=== PATIENT | male | born 1985 | race Caucasian/White ===

== ENCOUNTER → 2020-10-16 | Outpatient (REF) | payer BC ==
[2020-10-16 18:45] LABS: APPEARANCE, URINE CLEAR (CLEAR); BACTERIA, URINE AUTO NEGATIVE (NEGATIVE); BILIRUBIN, URINE AUTO NEGATIVE (NEGATIVE); BLOOD, URINE BLOOD NEGATIVE (NEGATIVE); COLOR, URINE YELLOW (YELLOW); GLUCOSE, URINE (UA) AUTO NEGATIVE (NEGATIVE); KETONE, URINE AUTO NEGATIVE (NEGATIVE); LEUKOCYTE ESTERASE, URINE AUTO NEGATIVE (NEGATIVE); MUCUS, URINE SMALL (NEGATIVE); NITRITE, URINE AUTO NEGATIVE (NEGATIVE); PROTEIN, URINE AUTO NEGATIVE (NEGATIVE); RBC, URINE AUTO 2 /HPF (0-3); SPECIFIC GRAVITY URINE AUTO 1.012 (1.002-1.035); SQUAMOUS EPITHELIAL CELL UR AU 0 /HPF (0-6); UROBILINOGEN, URINE AUTO 0.2 mg/dL (0.0-2.0); WBC, URINE AUTO 0 /HPF (0-3)
== END ==
LOC: M SMT 17:29
PROVIDERS: ATTEND Nurse Practitioner Women's Health
DX: R31.9 Hematuria, unspecified (principal)

== ENCOUNTER 2023-04-25 08:53 | Inpatient (IN) | payer BC ==
[~2023-04-25] VITALS: Ht 172.7 cm; Wt 56.0 kg
[2023-04-25] MEDS ORDERED: NS 1,000 ML IV ONE ×2 (12:05→13:15)
[2023-04-25] MEDS ORDERED: PANTOPRAZOLE 40MG VIAL IV ONE ×2 (12:05→16:00)
[2023-04-25] MEDS ORDERED: diazePAM 10MG/2ML SYRINGE IV ONE ×2 (12:05→14:20)
[2023-04-25] MEDS ORDERED: ONDANSETRON 4MG 2ML VIAL IV ONE (12:05)
[2023-04-25 12:18] LABS: BASO # 0.1 10^3/uL (0.0-0.2); BASO % 0.7 % (0.0-1.0); EOS % 0.1 % (0.0-3.0); HEMATOCRIT 49.2 % (42.0-52.0); HEMOGLOBIN 17.7 g/dl (13.5-17.5); LYMPH # 0.9 10^3/uL (1.5-5.0); LYMPH % 7.5 % (24.0-44.0); MEAN CORPUSCULAR HEMOGLOBIN 34.8 pg (27.0-33.0); MEAN CORPUSCULAR VOLUME 96.9 fl (80.0-96.0); MONO # 0.7 10^3/uL (0.0-0.8); MONO % 6.3 % (2.0-8.0); NEUTROPHILS # 9.9 10^3/uL (1.5-8.5); PLATELET COUNT, AUTOMATED 117 10^3/uL (150-450); RED BLOOD COUNT 5.08 10^6/uL (4.30-6.10); WHITE BLOOD COUNT 11.7 10^3/uL (4.0-10.0)
[2023-04-25 12:22] LABS: LIPASE 38 U/L (12-53)
[2023-04-25 12:24] LABS: ALKALINE PHOSPHATASE 111 U/L (46-116); ALT/SGPT 122 U/L (7.0-40); AST/SGOT 184 U/L (<34); BILIRUBIN,DIRECT 0.6 MG/DL (<0.4); BILIRUBIN,TOTAL 1.6 MG/DL (0.3-1.2); TOTAL PROTEIN 7.1 G/DL (5.7-8.2)
[2023-04-25 12:29] LABS: INR 0.96
[2023-04-25 12:30] LABS: PARTIAL THROMBOPLASTIN TIME 21.6 SECONDS (24.8-34.2)
[2023-04-25] MEDS ORDERED: ISOVUE-370 76% 100ML VIAL As Ordered ONE (12:37)
[2023-04-25] MEDS ORDERED: ONDANSETRON 4MG 2ML VIAL IV PRN (15:20)
[2023-04-25] MEDS: LR 1,000 ML IV SCH (15:42)
[2023-04-25 15:52] LABS: C REACTIVE PROTEIN QUANTITATIV < 0.40 MG/DL (<1.0)
[2023-04-25 15:53] LABS: BLOOD UREA NITROGEN 10 MG/DL (9-23); CALCIUM LEVEL 9.2 MG/DL (8.5-10.1); CARBON DIOXIDE LEVEL 21 MMOL/L (20-31); CHLORIDE LEVEL 102 MMOL/L (98-107); GLOMERULAR FILTRATION RATE > 60.0 (>60); GLUCOSE, FASTING 104 MG/DL (60-100); POTASSIUM SERUM 3.5 MMOL/L (3.5-5.1); SODIUM LEVEL 142 MMOL/L (136-145)
[2023-04-25] MEDS ORDERED: MED REC IN PROGRESS XX SCH (15:55)
[2023-04-25] MEDS ORDERED: THIAMINE 200MG 2ML VIAL IM ONE (16:00)
[2023-04-25 16:07] LABS: PROCALCITONIN <0.04 ng/ml
[2023-04-25 16:08] LABS: ERYTHROCYTE SEDIMENTATION RATE 2 mm/hr (0-15)
[2023-04-25 16:25] LABS: BASO # 0.1 10^3/uL (0.0-0.2); BASO % 0.5 % (0.0-1.0); HEMATOCRIT 45.9 % (42.0-52.0); HEMOGLOBIN 16.3 g/dl (13.5-17.5); LYMPH # 0.5 10^3/uL (1.5-5.0); LYMPH % 4.7 % (24.0-44.0); MEAN CORPUSCULAR HGB CONC 35.5 g/dl (32.0-36.5); MEAN CORPUSCULAR VOLUME 98.5 fl (80.0-96.0); MONO # 0.9 10^3/uL (0.0-0.8); MONO % 8.2 % (2.0-8.0); NEUTROPHILS # 9.8 10^3/uL (1.5-8.5); NEUTROPHILS % 86.1 % (36.0-66.0); RED BLOOD COUNT 4.66 10^6/uL (4.30-6.10); WHITE BLOOD COUNT 11.4 10^3/uL (4.0-10.0)
[2023-04-25 16:27] LABS: MAGNESIUM LEVEL 1.5 MG/DL (1.8-2.4)
[2023-04-25 16:28] LABS: HIV 1&2 SCREEN NEGATIVE (NEGATIVE)
[2023-04-25 16:58] LABS: PLATELET COUNT, AUTOMATED 98 10^3/uL (150-450)
[2023-04-25 17:15] LABS: HEPATITIS C VIRUS ABY INDEX 0.07 INDEX (<0.8)
[2023-04-25 17:16] LABS: HEPATITIS B CORE ANTIBODY IGM NEGATIVE (NEGATIVE)
[2023-04-25] MEDS: LORazepam 2 MG TAB PO PRN ×2 (17:43→21:29)
[2023-04-25] MEDS: PIPERACILLIN/TAZOBACTAM SOD 3.375 GM in D5W MINI-BAG PLUS 50 ML IV SCH ×2 (18:34→23:45)
[2023-04-25] MEDS ORDERED: QUET50TA4 PO (19:16)
[2023-04-25] MEDS ORDERED: ATEN50TA2 PO (19:16)
[2023-04-25] MEDS ORDERED: BUSP15TA47 PO (19:16)
[2023-04-25] MEDS ORDERED: DULO1CAP6 PO (19:16)
[2023-04-25] MEDS ORDERED: HOME MED LIST COMPLETE! XX SCH (19:20)
[2023-04-25] MEDS: KCL 10MEQ/100ML SWI (KRUN) 10 MEQ in IV 1 EA IV SCH ×4 (19:20→23:09)
[2023-04-25 20:42] LABS: ALBUMIN 3.4 G/DL (3.2-5.2); ALKALINE PHOSPHATASE 93 U/L (46-116); ALT/SGPT 94 U/L (7.0-40); AST/SGOT 124 U/L (<34); BILIRUBIN,TOTAL 2.2 MG/DL (0.3-1.2); BLOOD UREA NITROGEN 8 MG/DL (9-23); CALCIUM LEVEL 8.1 MG/DL (8.5-10.1); CARBON DIOXIDE LEVEL 29 MMOL/L (20-31); CHLORIDE LEVEL 103 MMOL/L (98-107); CREATININE FOR GFR 0.88 MG/DL (0.70-1.30); GLOMERULAR FILTRATION RATE > 60.0 (>60); GLUCOSE, FASTING 119 MG/DL (60-100); POTASSIUM SERUM 4.2 MMOL/L (3.5-5.1); SODIUM LEVEL 141 MMOL/L (136-145)
[2023-04-25 21:16] VITALS: BP 190/102; TEMP 97.6; O2SAT 100
[2023-04-25] MEDS: DULoxetine 30MG CAPSULE (CYMBALTA) PO SCH (21:29)
[2023-04-25] MEDS: QUEtiapine FUMARATE 50MG TAB PO SCH (21:29)
[2023-04-25] MEDS: THIAMINE 100 MG TAB PO SCH (21:30)
[2023-04-25] MEDS: NYSTATIN 500,000U/5ML SUSP UDC PO SCH (21:30)
[2023-04-25] MEDS: atenoloL 50 MG TAB PO SCH (21:30)
[2023-04-25 22:29] VITALS: BP 160/93
[2023-04-25 23:17] VITALS: BP 154/100; TEMP 98.5; O2SAT 100
[2023-04-26] MEDS: PANTOPRAZOLE 40MG VIAL IV SCH ×2 (03:50→16:21)
[2023-04-26 04:25] VITALS: BP 165/102; TEMP 97.6; O2SAT 98
[2023-04-26] MEDS: LR 1,000 ML IV SCH ×2 (04:40→08:59)
[2023-04-26] MEDS: PIPERACILLIN/TAZOBACTAM SOD 3.375 GM in D5W MINI-BAG PLUS 50 ML IV SCH ×4 (05:10→23:20)
[2023-04-26 06:50] LABS: PROCALCITONIN 0.13 ng/ml
[2023-04-26 06:51] LABS: HEMATOCRIT 40.2 % (42.0-52.0); HEMOGLOBIN 13.9 g/dl (13.5-17.5); MEAN CORPUSCULAR HEMOGLOBIN 34.2 pg (27.0-33.0); MEAN CORPUSCULAR HGB CONC 34.6 g/dl (32.0-36.5); RED BLOOD COUNT 4.06 10^6/uL (4.30-6.10); WHITE BLOOD COUNT 6.4 10^3/uL (4.0-10.0)
[2023-04-26 06:52] LABS: ALKALINE PHOSPHATASE 83 U/L (46-116); ALT/SGPT 86 U/L (7.0-40); AST/SGOT 132 U/L (<34); BILIRUBIN,TOTAL 2.9 MG/DL (0.3-1.2); BLOOD UREA NITROGEN 6 MG/DL (9-23); CALCIUM LEVEL 8.1 MG/DL (8.5-10.1); CARBON DIOXIDE LEVEL 28 MMOL/L (20-31); CHLORIDE LEVEL 105 MMOL/L (98-107); CREATININE FOR GFR 1.02 MG/DL (0.70-1.30); GLOMERULAR FILTRATION RATE > 60.0 (>60); GLUCOSE, FASTING 86 MG/DL (60-100); MAGNESIUM LEVEL 1.2 MG/DL (1.8-2.4); POTASSIUM SERUM 3.7 MMOL/L (3.5-5.1); SODIUM LEVEL 142 MMOL/L (136-145); TOTAL PROTEIN 5.4 G/DL (5.7-8.2)
[2023-04-26 07:31] LABS: PLATELET COUNT, AUTOMATED 61 10^3/uL (150-450)
[2023-04-26] MEDS: MAG SULF 1GM/100ML (MAG RUN) 1 GM in IV 1 EA IV SCH ×4 (08:34→11:42)
[2023-04-26] MEDS: MULTIVITAMINS/MINERALS THERAP 1 TAB PO SCH (08:34)
[2023-04-26] MEDS: THIAMINE 100 MG TAB PO SCH ×2 (08:34→20:07)
[2023-04-26] MEDS: NYSTATIN 500,000U/5ML SUSP UDC PO SCH ×4 (08:34→20:06)
[2023-04-26] MEDS: FOLIC ACID 1MG TAB PO SCH (08:34)
[2023-04-26 08:59] VITALS: BP 150/102; TEMP 98; O2SAT 97
[2023-04-26 11:49] LABS: MONO REFLEX EBV COMP NEGATIVE (NEGATIVE)
[2023-04-26 12:00] VITALS: BP 172/110; TEMP 98.4; O2SAT 96
[2023-04-26] MEDS ORDERED: DOCUSATE SODIUM 100MG CAPSULE PO SCH (12:15)
[2023-04-26] MEDS: SUCRALFATE 1 GM TAB PO SCH ×3 (12:19→20:07)
[2023-04-26 12:24] LABS: HEPATITIS B CORE ANTIBODY IGM NEGATIVE (NEGATIVE); HEPATITIS C VIRUS ABY INDEX 0.07 INDEX (<0.8)
[2023-04-26] MEDS: BISACODYL 5MG TAB PO SCH ×2 (13:24→20:07)
[2023-04-26] MEDS: DOCUSATE SODIUM 100MG CAPSULE PO SCH ×3 (13:25→20:07)
[2023-04-26 13:51] LABS: APPEARANCE, URINE CLEAR (CLEAR); BACTERIA, URINE AUTO NEGATIVE (NEGATIVE); BILIRUBIN, URINE AUTO NEGATIVE (NEGATIVE); BLOOD, URINE BLOOD NEGATIVE (NEGATIVE); COLOR, URINE STRAW (YELLOW); GLUCOSE, URINE (UA) AUTO NEGATIVE (NEGATIVE); KETONE, URINE AUTO NEGATIVE (NEGATIVE); LEUKOCYTE ESTERASE, URINE AUTO NEGATIVE (NEGATIVE); MUCUS, URINE SMALL (NEGATIVE); NITRITE, URINE AUTO NEGATIVE (NEGATIVE); PROTEIN, URINE AUTO NEGATIVE (NEGATIVE); RBC, URINE AUTO 1 /HPF (0-3); SPECIFIC GRAVITY URINE AUTO 1.005 (1.002-1.035); SQUAMOUS EPITHELIAL CELL UR AU 0 /HPF (0-6); WBC, URINE AUTO 0 /HPF (0-3)
[2023-04-26] MEDS ORDERED: MULTIVITAMIN -ADULT INJECTION 10 ML, THIAMINE INJection 100 MG, FOLIC ACID 1 MG in NS 1... IV ONE (14:00)
[2023-04-26] MEDS ORDERED: amLODIPine 5 MG TAB PO ONE (14:50)
[2023-04-26 16:00] VITALS: BP 150/100; TEMP 97.9; O2SAT 99
[2023-04-26] MEDS: busPIRone 5 MG TAB PO PRN (16:20)
[2023-04-26 20:04] VITALS: BP 150/104; TEMP 98; O2SAT 98
[2023-04-26] MEDS: QUEtiapine FUMARATE 50MG TAB PO SCH (20:06)
[2023-04-26] MEDS: atenoloL 50 MG TAB PO SCH (20:06)
[2023-04-26] MEDS: DULoxetine 30MG CAPSULE (CYMBALTA) PO SCH (20:07)
[2023-04-26 23:45] VITALS: BP 160/93; TEMP 98.2; O2SAT 99
[2023-04-27] VITALS (8 sets, daily range): BP systolic 142–190; BP diastolic 70–110; TEMP 96.8–99; O2SAT 99–100
[2023-04-27] MEDS: PANTOPRAZOLE 40MG VIAL IV SCH ×2 (03:27→15:57)
[2023-04-27 05:14] LABS: BASO % 0.4 % (0.0-1.0); EOS # 0.1 10^3/uL (0.0-0.5); EOS % 1.8 % (0.0-3.0); HEMATOCRIT 40.5 % (42.0-52.0); HEMOGLOBIN 14.4 g/dl (13.5-17.5); LYMPH % 21.1 % (24.0-44.0); MEAN CORPUSCULAR HEMOGLOBIN 34.7 pg (27.0-33.0); MEAN CORPUSCULAR HGB CONC 35.6 g/dl (32.0-36.5); MEAN CORPUSCULAR VOLUME 97.6 fl (80.0-96.0); MONO # 0.5 10^3/uL (0.0-0.8); MONO % 9.3 % (2.0-8.0); NEUTROPHILS # 3.3 10^3/uL (1.5-8.5); RED BLOOD COUNT 4.15 10^6/uL (4.30-6.10); WHITE BLOOD COUNT 4.9 10^3/uL (4.0-10.0)
[2023-04-27 05:19] LABS: PLATELET COUNT, AUTOMATED 55 10^3/uL (150-450)
[2023-04-27] MEDS: PIPERACILLIN/TAZOBACTAM SOD 3.375 GM in D5W MINI-BAG PLUS 50 ML IV SCH ×2 (05:23→11:56)
[2023-04-27 05:33] LABS: ALKALINE PHOSPHATASE 81 U/L (46-116); ALT/SGPT 79 U/L (7.0-40); AST/SGOT 98 U/L (<34); BILIRUBIN,TOTAL 2.4 MG/DL (0.3-1.2); BLOOD UREA NITROGEN < 5 MG/DL (9-23); CARBON DIOXIDE LEVEL 25 MMOL/L (20-31); CHLORIDE LEVEL 105 MMOL/L (98-107); CREATININE FOR GFR 0.93 MG/DL (0.70-1.30); GLOMERULAR FILTRATION RATE > 60.0 (>60); GLUCOSE, FASTING 85 MG/DL (60-100); MAGNESIUM LEVEL 1.8 MG/DL (1.8-2.4); POTASSIUM SERUM 3.5 MMOL/L (3.5-5.1); SODIUM LEVEL 140 MMOL/L (136-145); TOTAL PROTEIN 5.6 G/DL (5.7-8.2)
[2023-04-27] MEDS: BISACODYL 5MG TAB PO SCH ×2 (08:34→21:55)
[2023-04-27] MEDS: MULTIVITAMINS/MINERALS THERAP 1 TAB PO SCH (08:34)
[2023-04-27] MEDS: DOCUSATE SODIUM 100MG CAPSULE PO SCH ×3 (08:34→21:54)
[2023-04-27] MEDS: FOLIC ACID 1MG TAB PO SCH (08:35)
[2023-04-27] MEDS: busPIRone 5 MG TAB PO PRN (08:35)
[2023-04-27] MEDS: NYSTATIN 500,000U/5ML SUSP UDC PO SCH ×4 (08:35→21:56)
[2023-04-27] MEDS: THIAMINE 100 MG TAB PO SCH ×2 (08:35→21:55)
[2023-04-27] MEDS: SUCRALFATE 1 GM TAB PO SCH ×4 (08:35→21:55)
[2023-04-27] MEDS ORDERED: amLODIPine 5 MG TAB PO SCH (09:00)
[2023-04-27 14:14] LABS: EBV VIRAL CAPSID AG IgG >600.0 U/mL (0.0-17.9); EBV VIRAL CAPSID AG IgM <36.0 U/mL (0.0-35.9)
[2023-04-27] MEDS ORDERED: amLODIPine 5 MG TAB PO ONE (15:40)
[2023-04-27] MEDS ORDERED: GOLYTELY SOLN 4000 ML BTL PO ONE (16:00)
[2023-04-27] MEDS: DULoxetine 30MG CAPSULE (CYMBALTA) PO SCH (21:54)
[2023-04-27] MEDS: QUEtiapine FUMARATE 50MG TAB PO SCH (21:55)
[2023-04-27] MEDS: AUGMENTIN 875 MG TAB PO SCH (21:55)
[2023-04-27] MEDS: atenoloL 50 MG TAB PO SCH (21:55)
[2023-04-27] MEDS ORDERED: ONDANSETRON 4MG 2ML VIAL IV PRN (23:20)
[2023-04-28 02:25] VITALS: BP 158/98
[2023-04-28] MEDS: PANTOPRAZOLE 40MG VIAL IV SCH ×2 (04:12→16:19)
[2023-04-28 04:40] VITALS: BP 144/64; TEMP 98.1; O2SAT 100
[2023-04-28 05:59] LABS: BASO # 0.1 10^3/uL (0.0-0.2); BASO % 0.9 % (0.0-1.0); EOS # 0.2 10^3/uL (0.0-0.5); EOS % 3.4 % (0.0-3.0); HEMATOCRIT 44.7 % (42.0-52.0); LYMPH # 1.5 10^3/uL (1.5-5.0); LYMPH % 27.6 % (24.0-44.0); MEAN CORPUSCULAR HEMOGLOBIN 34.9 pg (27.0-33.0); MEAN CORPUSCULAR HGB CONC 35.8 g/dl (32.0-36.5); MEAN CORPUSCULAR VOLUME 97.6 fl (80.0-96.0); MONO # 0.6 10^3/uL (0.0-0.8); MONO % 11.8 % (2.0-8.0); NEUTROPHILS % 55.9 % (36.0-66.0); RED BLOOD COUNT 4.58 10^6/uL (4.30-6.10); WHITE BLOOD COUNT 5.4 10^3/uL (4.0-10.0)
[2023-04-28 06:02] LABS: PLATELET COUNT, AUTOMATED 63 10^3/uL (150-450)
[2023-04-28 06:37] LABS: ALBUMIN 3.2 G/DL (3.2-5.2); ALKALINE PHOSPHATASE 83 U/L (46-116); ALT/SGPT 112 U/L (7.0-40); AST/SGOT 155 U/L (<34); BILIRUBIN,TOTAL 1.4 MG/DL (0.3-1.2); BLOOD UREA NITROGEN < 5 MG/DL (9-23); CALCIUM LEVEL 8.8 MG/DL (8.5-10.1); CARBON DIOXIDE LEVEL 25 MMOL/L (20-31); CHLORIDE LEVEL 106 MMOL/L (98-107); CREATININE FOR GFR 0.88 MG/DL (0.70-1.30); GLOMERULAR FILTRATION RATE > 60.0 (>60); GLUCOSE, FASTING 83 MG/DL (60-100); MAGNESIUM LEVEL 1.9 MG/DL (1.8-2.4); POTASSIUM SERUM 3.2 MMOL/L (3.5-5.1); SODIUM LEVEL 143 MMOL/L (136-145); TOTAL PROTEIN 6.1 G/DL (5.7-8.2)
[2023-04-28] MEDS ORDERED: POTASSIUM CHLORIDE 10MEQ SR TABLET PO ONE (07:00)
[2023-04-28] MEDS: SUCRALFATE 1 GM TAB PO SCH ×2 (07:30→11:57)
[2023-04-28] MEDS ORDERED: amLODIPine 5 MG TAB PO SCH (09:00)
[2023-04-28 09:49] VITALS: BP_SYST 136; BP_DIAS 72; BP_DIAS 82
[2023-04-28 09:50] VITALS: BP 136/82
[2023-04-28] MEDS: NYSTATIN 500,000U/5ML SUSP UDC PO SCH ×2 (09:50→13:00)
[2023-04-28] MEDS: BISACODYL 5MG TAB PO SCH (09:50)
[2023-04-28] MEDS: MULTIVITAMINS/MINERALS THERAP 1 TAB PO SCH (09:51)
[2023-04-28] MEDS: DOCUSATE SODIUM 100MG CAPSULE PO SCH (09:51)
[2023-04-28] MEDS: FOLIC ACID 1MG TAB PO SCH (09:51)
[2023-04-28] MEDS: THIAMINE 100 MG TAB PO SCH (09:51)
[2023-04-28] MEDS: AUGMENTIN 875 MG TAB PO SCH (09:51)
[2023-04-28] MEDS ORDERED: PANT40TA29 PO (12:21)
[2023-04-28] MEDS ORDERED: VITMTA PO (12:21)
[2023-04-28] MEDS ORDERED: AMLO1TAB24 PO (12:21)
[2023-04-28] MEDS ORDERED: AMOX875T2 PO (12:21)
[2023-04-28] MEDS ORDERED: FOLI1TAB11 PO (12:21)
[2023-04-28] MEDS ORDERED: SUCR1TA PO (12:21)
[2023-04-28 12:45] VITALS: BP 138/102; TEMP 98.1; O2SAT 98
[2023-04-28 14:32] VITALS: BP 117/76; TEMP 98
[2023-04-28] MEDS ORDERED: THIA100TA PO (15:49)
== END 2023-04-28 16:33 | disposition home or self-care (01) | DRG 242 ==
LOC: M ED 08:53 → M ED INP 15:09 → M PCU 21:12 → M MSPAV 04-27 18:30
PROVIDERS: ADMIT Internal Medicine; ATTEND Internal Medicine
PROC: 0DBN8ZX Excision of Sigmoid Colon, Via Natural or Artificial Opening Endoscopic, Diagnostic (ICD-10-PCS; 2023-04-28)
PROC: 0DD68ZX Extraction of Stomach, Via Natural or Artificial Opening Endoscopic, Diagnostic (ICD-10-PCS; principal; 2023-04-28 13:45)
DX: K22.6 Gastro-esophageal laceration-hemorrhage syndrome (principal); B37.0 Candidal stomatitis; E87.20 Acidosis, unspecified; D69.6 Thrombocytopenia, unspecified; D62 Acute posthemorrhagic anemia; D75.1 Secondary polycythemia; K70.9 Alcoholic liver disease, unspecified; K76.0 Fatty (change of) liver, not elsewhere classified; E87.6 Hypokalemia; F10.20 Alcohol dependence, uncomplicated; I10 Essential (primary) hypertension; K29.70 Gastritis, unspecified, without bleeding; F41.9 Anxiety disorder, unspecified; F32.A Depression, unspecified; Z79.899 Other long term (current) drug therapy; D12.7 Benign neoplasm of rectosigmoid junction; D12.5 Benign neoplasm of sigmoid colon; K29.80 Duodenitis without bleeding; K92.0 Hematemesis